=== PATIENT | female | born 1955 | race African-American/Black ===

== ENCOUNTER 2021-08-08 14:56 | Outpatient (CLI) | payer MEDICARE, BC | END 2021-08-08 14:57 | disposition home or self-care (01) | LOC: CSHRAD 14:56 | PROVIDERS: ATTEND Family Medicine | DX: M79.671 Pain in right foot (principal); M79.672 Pain in left foot; M79.89 Other specified soft tissue disorders ==

== ENCOUNTER 2021-10-09 12:52 | Outpatient (CLI) | payer BC, MEDICARE | END 2021-10-09 12:53 | disposition home or self-care (01) | LOC: CSHWCC 12:52 | PROVIDERS: ATTEND Nurse Practitioner Family | DX: E11.621 Type 2 diabetes mellitus with foot ulcer (principal); L97.412 Non-pressure chronic ulcer of right heel and midfoot with fat layer exposed; L97.422 Non-pressure chronic ulcer of left heel and midfoot with fat layer exposed; R60.0 Localized edema | CPT/HCPCS: 11042; 97139; G0463; 99203 ==

== ENCOUNTER 2021-10-11 14:44 | Outpatient (CLI) | payer BC, MEDICARE | END 2021-10-11 14:45 | disposition home or self-care (01) | LOC: CSHMRI 14:44 | PROVIDERS: ATTEND Podiatrist | DX: E11.621 Type 2 diabetes mellitus with foot ulcer (principal); L97.529 Non-pressure chronic ulcer of other part of left foot with unspecified severity; L97.519 Non-pressure chronic ulcer of other part of right foot with unspecified severity; R60.0 Localized edema; M19.071 Primary osteoarthritis, right ankle and foot ==